=== PATIENT | female | born 1945 | race Caucasian/White ===

== ENCOUNTER → 2017-04-03 | Outpatient (CLI) | payer OTHER, MEDICARE | LOC: FIMAGING 13:01 | PROVIDERS: ATTEND Family Medicine | DX: Z12.31 Encounter for screening mammogram for malignant neoplasm of breast (principal); Z80.3 Family history of malignant neoplasm of breast | CPT/HCPCS: G0202 ==

== ENCOUNTER 2017-08-13 12:11 | Observation (INO) | payer OTHER, MEDICARE ==
--- NOTE | 2017-08-13 12:38 | CPEKG ---
Heart Rate: 67 RR Interval: 896 P-R Interval: 148 QRSD Interval: 84 QT Interval: 372 QTC Interval: 393 P [place]: -4 QRS [place]: 8 T Wave [place]: 29 EKG Severity - NORMAL ECG - EKG Impression: SINUS RHYTHM Electronically Signed By: Stoney Gunn 13-Aug-2017 14:29:23
--- NOTE | 2017-08-13 13:17 | EDPHY ---
H & P Time Seen by Provider: 08/13/17 13:17 HPI/ROS: CHIEF COMPLAINT: Chest tightness HISTORY OF PRESENT ILLNESS: The patient presents with symptoms since last Sunday which are intermittent. She describes central chest tightness across the center of her chest which does not radiate. It is intermittent and not completely constant. She has some wooziness and feeling faint associated and noticed it has been more difficult to go up the stairs. Her symptoms got worse when she tries to go from her basement level up to her main level of her residence. Symptoms present currently and very mild. REVIEW OF SYSTEMS: Eye: no change in vision ENT: no sore throat Cardiac: HPI no palpitations Pulmonary: No cough or hemoptysis Abdomen: no vomiting, diarrhea, abdominal pain Musculoskeletal: no back pain or leg swelling Skin: no rash Neuro: no headache Constitutional: no fever : no urinary symptoms A comprehensive 10 point review of systems is otherwise negative aside from elements mentioned in the history of present illness. PAST MEDICAL HISTORY: Remote history of uterine cancer more than 12 years ago, migraines, hypercholesterolemia Social history: Ex smoker greater than 15 years General Appearance: Alert and conversant, cooperative. Eyes: No scleral icterus. ENT, Mouth: Normal mucous membranes. Respiratory: Normal respiratory effort, breath sounds equal, lungs are clear to auscultation. Cardiovascular: Regular rate and rhythm. Gastrointestinal: Abdomen is soft and non tender. Neurological: Alert and oriented x3. Normally conversant. Face symmetric, normal movement and sensation in all extremities. Skin: Warm and dry, no rashes. Musculoskeletal: No peripheral edema and no joint swelling. No calf tenderness Psychiatric: Not agitated. Emergency Department course/MDM: Plan for EKG, chest x-ray, troponin and D-dimer, especially given history of uterine cancer. 1411: D-dimer greater than 5, chest CT discussed and consented. 1500: CTA per Dr. Crenshaw shows bilateral pulmonary emboli. Discussed with the patient; subcutaneous Lovenox in the emergency department, admission to hospitalist service. Smoking Status: Never smoked Constitutional: Initial Vital Signs Temperature (C) 36.6 C 08/13/17 12:12 Heart Rate 81 08/13/17 12:12 Respiratory Rate 18 08/13/17 12:12 Blood Pressure 147/98 H 08/13/17 12:12 O2 Sat (%) 95 08/13/17 12:12 O2 Delivery Mode Room Air Allergies/Adverse Reactions: tramadol Allergy (Severe, Verified 08/13/17 12:20) sz Home Medications: Medication Instructions Recorded Acet/Caffeine/Buta Fioricet 1 each PO DAILY PRN 08/13/17 [Fioricet (*)] Dicyclomine [Bentyl 10 MG (*)] 10 mg PO DAILY PRN 08/13/17 Herbals/Supplements -Info Only 1 ea PO DAILY 08/13/17 Loratadine [Claritin 10 mg] 10 mg PO HS 08/13/17 Medical Decision Making - Diagnostics EKG Interpretation: 12-lead EKG interpreted by me; official reading is in trace master. My interpretation is sinus rhythm rate 67 no ischemic changes. Imaging Results: Imaging Impressions Chest X-Ray 08/13/17 13:39 Impression: No acute process. Chronic mild airways disease. Chest/Thorax CTA 08/13/17 14:10 Impression: 1. Bilateral pulmonary embolism, moderate amount on the right, and mild amount on the left. 2. No evidence for pulmonary contusion or infarction. No effusion or consolidation. Findings and recommendations discussed with Dr. Stoney Gunn at 0255 hours on August 13, 2017. Final report concurs with initial preliminary interpretation. Differential Diagnosis: Differential diagnosis considered for chest tightness including but not limited to myocardial ischemia, aortic dissection, pericarditis, pulmonary embolus, chest wall pain, pleural inflammation and pulmonary infectious causes. Consult/Admit Bed Type: [place] [id number] - Data Points Laboratory Results: Laboratory Results 08/13/17 12:45 08/13/17 12:45 08/13/17 08/13/17 08/13/17 12:45 12:45 12:45 WBC 5.75 10^3/uL 10^3/uL (3.80-9.50) RBC 4.64 10^6/uL 10^6/uL (4.18-5.33) Hgb 14.3 g/dL g/dL (12.6-16.3) Hct 41.8 % % (38.0-47.0) MCV 90.1 fL fL (81.5-99.8) MCH 30.8 pg pg (27.9-34.1) MCHC 34.2 g/dL g/dL (32.4-36.7) RDW 13.3 % % (11.5-15.2) Plt Count 208 10^3/uL 10^3/uL (150-400) MPV 10.1 fL fL (8.7-11.7) Neut % (Auto) 67.4 % % (39.3-74.2) Lymph % (Auto) 21.6 % % (15.0-45.0) Bertie % (Auto) 7.5 % % (4.5-13.0) Eos % (Auto) 2.3 % % (0.6-7.6) Baso % (Auto) 0.9 % % (0.3-1.7) Nucleat RBC Rel Count 0.0 % % (0.0-0.2) Absolute Neuts (auto) 3.88 10^3/uL 10^3/uL (1.70-6.50) Absolute Lymphs (auto) 1.24 10^3/uL 10^3/uL (1.00-3.00) Absolute Monos (auto) 0.43 10^3/uL 10^3/uL (0.30-0.80) Absolute Eos (auto) 0.13 10^3/uL 10^3/uL (0.03-0.40) Absolute Basos (auto) 0.05 10^3/uL 10^3/uL (0.02-0.10) Absolute Nucleated RBC 0.00 10^3/uL 10^3/uL (0-0.01) Immature Gran % 0.3 % % (0.0-1.1) Immature Gran # 0.02 10^3/uL 10^3/uL (0.00-0.10) D-Dimer 5.43 ug/mLFEU H ug/mLFEU (0.00-0.50) Sodium 137 mEq/L mEq/L (134-144) Potassium 4.3 mEq/L mEq/L (3.5-5.2) Chloride 104 mEq/L mEq/L (97-110) Carbon Dioxide 24 mEq/l mEq/l (22-31) Anion Gap 9 mEq/L mEq/L (8-16) BUN 12 mg/dL mg/dL (7-23) Creatinine 0.8 mg/dL mg/dL (0.6-1.0) Estimated GFR > 60 Glucose 85 mg/dL mg/dL (70-100) Calcium 9.2 mg/dL mg/dL (8.5-10.4) Troponin I < 0.012 ng/mL ng/mL (0.000-0.034) Medications Given: Cetirizine HCl (Zyrtec) 10 mg PO HS PATT Stop: 02/09/18 20:59 Last Admin: 08/13/17 20:08 Dose: 10 mg Discontinued Medications Enoxaparin Sodium (Lovenox) 80 mg SC EDNOW ONE Stop: 08/13/17 15:14 Last Admin: 08/13/17 15:52 Dose: 80 mg Departure - Departure Disposition: [facility] Acute Clinical Impression: Pulmonary embolism Qualifiers: Pulmonary embolism type: other Chronicity: acute Acute cor pulmonale presence: without acute cor pulmonale Qualified Code(s): I26.99 - Other pulmonary embolism without acute cor pulmonale Condition: Good
[2017-08-13 13:45] LABS: % IMMATURE GRANULYOCYTES 0.3 % (0.0-1.1); ABSOLUTE IMMATURE GRANULOCYTES 0.02 10^3/uL (0.00-0.10); ADD DIFF? NO; ADD MORPH? NO; ADD SCAN? NO; ATYPICAL LYMPHOCYTE FLAG 20 (0-99); FRAGMENT RBC FLAG 0 (0-99); HEMATOCRIT 41.8 % (38.0-47.0); HEMOGLOBIN 14.3 g/dL (12.6-16.3); LEFT SHIFT FLG 0 (0-99); LIPEMIA HEMOLYSIS FLAG 90 (0-99); MEAN CELL HEMOGLOBIN 30.8 pg (27.9-34.1); MEAN CELL HEMOGLOBIN CONCENTR. 34.2 g/dL (32.4-36.7); MEAN CELL VOLUME 90.1 fL (81.5-99.8); MEAN PLATELET VOLUME 10.1 fL (8.7-11.7); PLATELET CLUMPS FLAG 0 (0-99); PLATELET COUNT 208 10^3/uL (150-400); RED BLOOD CELL COUNT 4.64 10^6/uL (4.18-5.33); RED CELL DISTRIBUTION WIDTH 13.3 % (11.5-15.2)
[2017-08-13 13:54] LABS: ANION GAP 9 mEq/L (8-16); CALCIUM 9.2 mg/dL (8.5-10.4); CARBON DIOXIDE 24 mEq/l (22-31); CHLORIDE 104 mEq/L (97-110); CREATININE 0.8 mg/dL (0.6-1.0); GLOMERULAR FILTRATION RATE > 60; GLUCOSE 85 mg/dL (70-100); POTASSIUM 4.3 mEq/L (3.5-5.2); SODIUM 137 mEq/L (134-144)
[2017-08-13 14:05] LABS: TROPONIN I < 0.012 ng/mL (0.000-0.034)
[2017-08-13] MEDS ORDERED: IOPAMIDOL (ISOVUE 370) 100 ML BTL IV ONE (14:27)
[2017-08-13] MEDS ORDERED: ENOXAPARIN 80 MG/0.8 ML SYR SC ONE (15:13)
[2017-08-13] MEDS ORDERED: HYDROmorphONE/DILAUDID 2 MG TAB PO PRN (16:13)
[2017-08-13] MEDS ORDERED: oxyCODONE IR 5 MG TAB PO PRN (16:13)
[2017-08-13] MEDS ORDERED: ONDANSETRON DISINTEGRATING 4 MG TAB PO PRN (16:13)
[2017-08-13] MEDS ORDERED: ACETAMINOPHEN 325 MG TAB PO PRN (16:13)
[2017-08-13] MEDS ORDERED: HYDROmorphONE/DILAUDID 1 MG/ML INJ IVP PRN (16:13)
[2017-08-13] MEDS ORDERED: ONDANSETRON 4 MG/2 ML VIAL IVP PRN (16:13)
[2017-08-13] MEDS ORDERED: ACET/CAFFEINE/BUTA FIORICET 1 EACH TAB PO PRN (16:18)
[2017-08-13] MEDS ORDERED: DICYCLOMINE 10 MG CAP PO PRN (16:18)
--- NOTE | 2017-08-13 16:22 | PDGENHP ---
History and Physical - Chief Complaint Acute chest pain - History of Present Illness PCP: Dr. Olga Lidia Addison HPI: 72 yo F p/w acute chest pain characterized as tightness, located in the central chest, onset of sx 5 days prior, and duration intermittent thereafter. She experienced no provoking factor. It has been associated w/ lightheadedness and generalized weakness. It is exacerbated by movement and exertion, particularly when patient ambulates up stairs. It is alleviated w/ rest. Approx 2 weeks ago patient had a L calf "lump", which was alleviated by massaging the calf. Approx 3 weeks ago, she went on a road trip to [place], but reports stopping every couple hours. She has not recently had any bleeding. History Information - Allergies/Home Medication List Allergies/Adverse Reactions: tramadol Allergy (Severe, Verified 08/13/17 12:20) sz Home Medications: Acet/Caffeine/Buta Fioricet [Fioricet (*)] 1 each PO DAILY PRN 08/13/17 [Last Taken 08/11/17] Dicyclomine [Bentyl 10 MG (*)] 10 mg PO DAILY PRN 08/13/17 [Last Taken 07/30/17] Herbals/Supplements -Info Only 1 ea PO DAILY 08/13/17 [Last Taken Unknown] Loratadine [Claritin 10 mg] 10 mg PO HS 08/13/17 [Last Taken 08/12/17] I have personally reviewed and updated: family history, medical history, social history, surgical history - Past Medical History Additional medical history: Uterine cancer 12 years, currently in remission. Migraines - Surgical History Additional surgical history: bilat knees - Family History Additional family history: no VTE, daughters both with muscular dystrophy - Social History Smoking Status: Former smoker Alcohol Use: None Drug Use: None Additional social history: independent ADLs Review of Systems Review of Systems: ROS: 10pt was reviewed & negative except for what was stated in HPI & below Constitutional: Reports: weakness Cardiac: Reports: chest pain Physical Exam Physical Exam: Temp Pulse Resp BP Pulse Ox 36.6 C 80 16 140/60 H 95 08/13/17 12:12 08/13/17 15:54 08/13/17 15:54 08/13/17 15:54 08/13/17 15:54 Constitutional: no apparent distress, appears nourished, not in pain Eyes: PERRL, anicteric sclera, EOMI Ears, Nose, Mouth, Throat: moist mucous membranes, hearing normal, ears appear normal, no oral mucosal ulcers Cardiovascular: regular rate and rhythym, no murmur, rub, or gallop, No edema Respiratory: no respiratory distress, no rales or rhonchi, clear to auscultation , other (poor insp effort) Gastrointestinal: normoactive bowel sounds, soft, non-tender abdomen, no palpable masses Skin: warm, normal color, no rashes or abrasions, no fluctuance, no induration, No mottled Musculoskeletal: other (mild tenderness over sternum w/o bony abnl) Neurologic: AAOx3, sensation intact bilaterally, No weakness, No facial droop Psychiatric: interacting appropriately, not anxious, not encephalopathic, thought process linear Lab Data & Imaging Review 08/13/17 12:45 08/13/17 12:45 WBC 5.75 10^3/uL (3.80-9.50) 08/13/17 12:45 RBC 4.64 10^6/uL (4.18-5.33) 08/13/17 12:45 Hgb 14.3 g/dL (12.6-16.3) 08/13/17 12:45 Hct 41.8 % (38.0-47.0) 08/13/17 12:45 MCV 90.1 fL (81.5-99.8) 08/13/17 12:45 MCH 30.8 pg (27.9-34.1) 08/13/17 12:45 MCHC 34.2 g/dL (32.4-36.7) 08/13/17 12:45 RDW 13.3 % (11.5-15.2) 08/13/17 12:45 Plt Count 208 10^3/uL (150-400) 08/13/17 12:45 MPV 10.1 fL (8.7-11.7) 08/13/17 12:45 Neut % (Auto) 67.4 % (39.3-74.2) 08/13/17 12:45 Lymph % (Auto) 21.6 % (15.0-45.0) 08/13/17 12:45 [place] % (Auto) 7.5 % (4.5-13.0) 08/13/17 12:45 Eos % (Auto) 2.3 % (0.6-7.6) 08/13/17 12:45 Baso % (Auto) 0.9 % (0.3-1.7) 08/13/17 12:45 Nucleat RBC Rel Count 0.0 % (0.0-0.2) 08/13/17 12:45 Absolute Neuts (auto) 3.88 10^3/uL (1.70-6.50) 08/13/17 12:45 Absolute Lymphs (auto) 1.24 10^3/uL (1.00-3.00) 08/13/17 12:45 Absolute Monos (auto) 0.43 10^3/uL (0.30-0.80) 08/13/17 12:45 Absolute Eos (auto) 0.13 10^3/uL (0.03-0.40) 08/13/17 12:45 Absolute Basos (auto) 0.05 10^3/uL (0.02-0.10) 08/13/17 12:45 Absolute Nucleated RBC 0.00 10^3/uL (0-0.01) 08/13/17 12:45 Immature Gran % 0.3 % (0.0-1.1) 08/13/17 12:45 Immature Gran # 0.02 10^3/uL (0.00-0.10) 08/13/17 12:45 D-Dimer 5.43 ug/mLFEU (0.00-0.50) H 08/13/17 12:45 Sodium 137 mEq/L (134-144) 08/13/17 12:45 Potassium 4.3 mEq/L (3.5-5.2) 08/13/17 12:45 Chloride 104 mEq/L (97-110) 08/13/17 12:45 Carbon Dioxide 24 mEq/l (22-31) 08/13/17 12:45 Anion Gap 9 mEq/L (8-16) 08/13/17 12:45 BUN 12 mg/dL (7-23) 08/13/17 12:45 Creatinine 0.8 mg/dL (0.6-1.0) 08/13/17 12:45 Estimated GFR > 60 08/13/17 12:45 Glucose 85 mg/dL (70-100) 08/13/17 12:45 Calcium 9.2 mg/dL (8.5-10.4) 08/13/17 12:45 Troponin I < 0.012 ng/mL (0.000-0.034) 08/13/17 12:45 Visualized and Interpreted EKG results: Yes EKG Interpretation: Positive for: other (NSR) Assessment & Plan Assessment: 72 yo F p/w acute pulmonary embolism Plan: # Pulmonary Embolism. Acute, new problem, further w/u indicated. Hemodynamically stable, has symptomatic pain, bilateral on CTA w/o infarct, but infarct could certainly be evolving - pain mgmt, gauge needs - initiated on lovenox 80 bid, will discuss oral options - get LE US to eval for source - get oupt colonoscopy early (has had in past, told she is due in 2 yrs) - outpt records reviewed (04/03/17 neg mammogram read by Dr. Clement Bueno) - monitor on tele o/n, repeat trop in AM, hold on Echo unless positive # Migraine. Fioricet OK, will d/w patient adjusting to tylenol base instead of ASA Diet. Regular PPx. On lovenox 80 Code. Full, daughter Eugenia is MDPOA Dispo. ADD 08/14, pending w/u and stabilization of above. Discussed with Dr. Jorge Madrid, she has signed the patient out to me for evaluation.
[2017-08-13] MEDS ORDERED: NON-FORMULARY NEW DRUG (Loratadine [Claritin 10 Mg] 10 MG) PO SCH (21:00)
[2017-08-13] MEDS ORDERED: CETIRIZINE 10 MG TAB PO SCH (21:00)
[2017-08-14] MEDS ORDERED: HYDROmorphONE/DILAUDID 2 MG/ML INJ IVP PRN (00:30)
[2017-08-14] MEDS: ENOXAPARIN 80 MG/0.8 ML SYR SC SCH ×2 (04:47→08:00)
[2017-08-14 05:35] LABS: % IMMATURE GRANULYOCYTES 0.4 % (0.0-1.1); ABSOLUTE IMMATURE GRANULOCYTES 0.02 10^3/uL (0.00-0.10); ADD DIFF? NO; ADD MORPH? NO; ADD SCAN? NO; ATYPICAL LYMPHOCYTE FLAG 20 (0-99); FRAGMENT RBC FLAG 0 (0-99); HEMATOCRIT 39.9 % (38.0-47.0); HEMOGLOBIN 13.7 g/dL (12.6-16.3); LEFT SHIFT FLG 0 (0-99); LIPEMIA HEMOLYSIS FLAG 90 (0-99); MEAN CELL HEMOGLOBIN 30.9 pg (27.9-34.1); MEAN CELL HEMOGLOBIN CONCENTR. 34.3 g/dL (32.4-36.7); MEAN CELL VOLUME 90.1 fL (81.5-99.8); MEAN PLATELET VOLUME 9.9 fL (8.7-11.7); PLATELET CLUMPS FLAG 0 (0-99); PLATELET COUNT 203 10^3/uL (150-400); RED BLOOD CELL COUNT 4.43 10^6/uL (4.18-5.33); RED CELL DISTRIBUTION WIDTH 13.2 % (11.5-15.2)
[2017-08-14 05:59] LABS: ALANINE AMINOTRANSFERASE 31 IU/L (9-52); ALBUMIN 3.1 g/dL (3.5-5.0); ALKALINE PHOSPHATASE 82 IU/L (38-126); ANION GAP 9 mEq/L (8-16); ASPARTATE AMINOTRANSFERASE 18 IU/L (14-46); BILIRUBIN,TOTAL 0.4 mg/dL (0.1-1.4); CALCIUM 9.2 mg/dL (8.5-10.4); CARBON DIOXIDE 22 mEq/l (22-31); CHLORIDE 108 mEq/L (97-110); CREATININE 0.7 mg/dL (0.6-1.0); GLOMERULAR FILTRATION RATE > 60; GLUCOSE 98 mg/dL (70-100); POTASSIUM 3.9 mEq/L (3.5-5.2); SODIUM 139 mEq/L (134-144)
[2017-08-14 06:09] LABS: TROPONIN I < 0.012 ng/mL (0.000-0.034)
[2017-08-14 08:01] VITALS: RESP 16
[2017-08-14] MEDS ORDERED: Herbals/Supplements -Info Only PO SCH (09:00)
[2017-08-14 11:39] VITALS: BP 150/64; PULSE 65; TEMP 97.7; O2SAT 92
--- NOTE | 2017-08-14 15:16 | ASDISCHSUM ---
Discharge Information Plan Status:Home with No Needs Medically Cleared to Leave:08/14/2017 Discharge Date:08/14/2017 12:39 PM CM D/C Disposition:Home, Routine, Self-Care ADT D/C Disposition:Home, Routine, Self-Care Projected Discharge Date:08/14/2017 12:00 AM Transportation at D/C:Friend Discharge Delay Reason: Follow-Up Date:08/14/2017 12:00 AM Discharge Slot: Final Diagnosis: Placement Information Patient Contact Information Contact Name:PARTHA Relationship: Address: Home Phone: Work Phone: City: Alternate Phone: State/[employer] Code: Email: Financial Information Financial Class: Primary Plan Desc:MEDICARE OUTPATIENT Primary Plan Number:[id number] Secondary Plan Desc:[employer]/MDR SUPPLEMENT Secondary Plan Number:[id number] Assessment Information [facility] Progress Note CM Note CM Note Notes: Pt is being discharged today. CM consulted w/ Dr. Machado regarding pt POC. CM met w/ pt to discuss cost of Pradaxa. CM provided pt w/ Pradaxa savings card. Pt activiated Pradaxa savings card to obtain 30 days of free medication. CM faxed over prescription to [facility] to have medication filled. [facility] pharmacy informed CM that pts next prescription needs a pre auth from PCP office. CM informed pt of this. Pt will discharge independent. CM available for changes. Date Signed: 08/14/2017 03:15 PM Electronically Signed By:MARIBEL Stovall Intervention Information Intervention Type:*RICHIE-Signed Date of Service:08/14/2017 10:17 AM Patient Type:Observation Staff Member:Negrita Larios Hours: Discipline: Severity: Comment:
--- NOTE | 2017-08-14 15:16 | ASMTCMCOM ---
CM Note CM Note Notes: Pt is being discharged today. CM consulted w/ Dr. Machado regarding pt POC. CM met w/ pt to discuss cost of Pradaxa. CM provided pt w/ Pradaxa savings card. Pt activiated Pradaxa savings card to obtain 30 days of free medication. CM faxed over prescription to [facility] pharmacy to have medication filled. [facility] pharmacy informed CM that pts next prescription needs a pre auth from PCP office. CM informed pt of this. Pt will discharge independent. CM available for changes. Date Signed: 08/14/2017 03:15 PM Electronically Signed By:MARIBEL Stovall
--- NOTE | 2017-08-14 15:23 | PDDCSUM ---
Discharge Summary Discharge Summary: DISCHARGE SUMMARY FOLLOW-UP ITEMS: Outpatient colonoscopy, outpatient women's care evaluation DATE OF ADMISSION: 08/13/2017 DATE OF DISCHARGE: 08/14/2017 DISCHARGE DIAGNOSES: 1. Acute pulmonary embolism present on admission 2. Acute left lower extremity deep venous thrombosis present on admission CONSULTATIONS: None PROCEDURES / IMAGING: CT angiograms demonstrating bilateral pulmonary emboli, left lower extremity ultrasound demonstrating partially occlusive deep venous thrombosis around the popliteal CHIEF COMPLAINT: Acute chest pain SUBJECTIVE: No chest pain at discharge PHYSICAL EXAM ON DISCHARGE: Systolic blood pressure 130, heart rate 60, satting well on room air, speaking in complete sentences, lungs are clear to auscultation bilaterally LABS ON DISCHARGE: D-dimer 5.4, troponin negative x2, hemoglobin 13.7, white blood cell count 5000 , platelets [id number] HOSPITAL COURSE BY PROBLEM: The patient presented with acute chest pain secondary to bilateral pulmonary emboli which were secondary to a left lower extremity deep venous thrombosis. Suspect that her original DVT was secondary to immobility with a recent road trip and then the clot particalized and embolized distally after she began rubbing the affected area in her left calf. She did not demonstrate any evidence of myocardial strain on labs, and she was initiated on Lovenox therapy. After extensive conversation regarding her anticoagulation options, the patient elected for initiation of Pradaxa. All bleeding risks were discussed thoroughly. She can safely take this medication concomitant Nico with her Fioricet which is Tylenol based. She will follow up with her primary care provider to discuss duration of therapy, and she will follow up with her [facility] physician regarding reassessment of her previous uterine cancer. She is up-to-date on her mammogram screening and she may elect for an early colonoscopy which would be appropriate for colon cancer screening at this time. She was chest pain-free at time of discharge. DISCHARGE MEDICATIONS: Please see official discharge medication reconciliation sheet in chart , Pradaxa 150 mg twice daily, continue all other home medications. DISCHARGE INSTRUCTIONS: Please follow up with primary care provider this week.
== END 2017-08-14 12:39 | disposition home or self-care (01) ==
LOC: F3E 16:28
PROVIDERS: ADMIT Internal Medicine; ATTEND Internal Medicine
DX: I26.99 Other pulmonary embolism without acute cor pulmonale (principal); I82.432 Acute embolism and thrombosis of left popliteal vein; E78.5 Hyperlipidemia, unspecified; G43.909 Migraine, unspecified, not intractable, without status migrainosus; Z85.42 Personal history of malignant neoplasm of other parts of uterus; Z87.891 Personal history of nicotine dependence
CPT/HCPCS: 71020; 71275; 93005; 93970; G0378; J1650; Q9967

== ENCOUNTER → 2018-12-17 | Outpatient (CLI) | payer OTHER, MEDICARE | LOC: GIMAGING 10:34 | PROVIDERS: ATTEND Nurse Practitioner | DX: M16.0 Bilateral primary osteoarthritis of hip (principal); M51.36 Other intervertebral disc degeneration, lumbar region; M51.37 Other intervertebral disc degeneration, lumbosacral region | CPT/HCPCS: 73521-PO ==

== ENCOUNTER → 2019-01-06 | Outpatient (CLI) | payer OTHER, MEDICARE | LOC: FCPNEURO 20:00 | PROVIDERS: ATTEND Psychiatry & Neurology Sleep Medicine | DX: G47.33 Obstructive sleep apnea (adult) (pediatric) (principal) ==

== ENCOUNTER → 2019-01-27 | Outpatient (CLI) | payer OTHER, MEDICARE | LOC: FCPNEURO 21:00 | PROVIDERS: ATTEND Psychiatry & Neurology Sleep Medicine | DX: G47.33 Obstructive sleep apnea (adult) (pediatric) (principal) ==

== ENCOUNTER → 2019-05-15 | Outpatient (CLI) | payer OTHER, MEDICARE | LOC: FIMAGING 09:16 ==